=== PATIENT | female | born 1975 | race Caucasian/White ===

== ENCOUNTER → 2018-08-29 10:13 | Outpatient (CLI) | payer OTHER, MEDICAID, SELFPAY ==
[2018-08-29 12:09] LABS: Alanine Aminotransferase 93 IU/L (9-52); Albumin 4.4 g/dL (3.5-5.0); Albumin Globulin Ratio 1.3 (1.0-2.8); Alkaline Phosphatase 69 U/L (38-126); Aspartate Aminotransferase 66 IU/L (14-36); BUN Creatinine Ratio 15.7 (6-22); Bilirubin Total 0.9 mg/dL (0.2-1.3); Blood Urea Nitrogen 11 mg/dL (7-17); Calcium 8.9 mg/dL (8.4-10.2); Carbon Dioxide 27 mmol/L (22-32); Chloride 101 mmol/L (98-107); Cholesterol 198 mg/dL (140-199); Estimated Glomerular Filt Rate > 60.0 mL/min (>60); Globulin 3.4 g/dL (1.7-4.1); Glucose 98 mg/dL (70-100); HDL Cholesterol 44 mg/dL (40-60); HEMOLYSIS < 15 (0-50); LDL Cholesterol Calculated 119 mg/dL (<100); Potassium 3.9 mmol/L (3.4-5.1); Sodium 137 mmol/L (137-145); Total Protein 7.8 g/dL (6.3-8.2); Triglycerides 175 mg/dL (35-150)
[2018-08-29 12:17] LABS: Hemoglobin A1C% w Est Avg Glu 5.8 % (4.0-6.0)
[2018-08-29 13:04] LABS: Thyroid Stimulating Hormone 1.22 uIU/mL (0.47-4.68)
== END ==
PROVIDERS: Visit Provider Nurse Practitioner Family
DX: E11.9 Type 2 diabetes mellitus without complications (principal); I10 Essential (primary) hypertension; E66.01 Morbid (severe) obesity due to excess calories
CPT/HCPCS: 36415; 80053; 80061; 83036; 84443

== ENCOUNTER → 2019-03-01 10:06 | Outpatient (CLI) | payer OTHER, MEDICAID, SELFPAY ==
[2019-03-01 11:35] LABS: Alanine Aminotransferase 22 IU/L (9-52); Albumin 4.3 g/dL (3.5-5.0); Albumin Globulin Ratio 1.3 (1.0-2.8); Alkaline Phosphatase 54 U/L (38-126); Aspartate Aminotransferase 24 IU/L (14-36); BUN Creatinine Ratio 18.3 (6-22); Bilirubin Total 1.1 mg/dL (0.2-1.3); Blood Urea Nitrogen 11 mg/dL (7-17); Carbon Dioxide 28 mmol/L (22-32); Chloride 104 mmol/L (98-107); Estimated Glomerular Filt Rate > 60.0 mL/min (>60); Globulin 3.3 g/dL (1.7-4.1); Glucose 90 mg/dL (70-100); HEMOLYSIS < 15 (0-50); Sodium 142 mmol/L (137-145); Total Protein 7.6 g/dL (6.3-8.2)
[2019-03-01 11:37] LABS: HEMOLYSIS < 15 (0-50); Iron 98 ug/dL (37-170)
[2019-03-01 11:47] LABS: Percent Iron Saturation 31 % (15-50); Total Iron Binding Capacity 316 ug/dL (265-497); Transferrin 248 mg/dL (206-381)
[2019-03-01 11:57] LABS: Vitamin D 25 Hydroxy (D3) 53.6 ng/mL (30.0-100.0)
[2019-03-01 12:24] LABS: Vitamin B12 416 pg/mL (239-931)
[2019-03-01 14:31] LABS: Add Manual Diff / Slide Review NO; Basophils Absolute Auto 0 /uL (0-100); Basophils Percent Auto 0.8 % (0-2); Eosinophils Absolute Auto 0 /uL (0-450); Eosinophils Percent Auto 0.7 % (2-4); Hematocrit 41.8 % (36-46); Hemoglobin 13.7 g/dL (12.0-16.0); Lymphocytes Absolute Auto 2100 /uL (1100-4500); Mean Corpuscular HGB Conc 32.9 % (30-36); Mean Corpuscular Hemoglobin 28.1 PG (26-34); Mean Corpuscular Volume 85.6 fL (80-100); Monocytes Absolute Auto 300 /uL (0-900); Monocytes Percent Auto 5.1 % (3-14); Neutrophils Absolute Auto 3300 /uL (1500-7000); Neutrophils Percent Auto 57.4 % (50-75); Platelet Count 213 X10^3/uL (150-400); Red Blood Cell Count 4.89 X10^6/uL (4.0-5.2); Red Cell Distribution Width 13.6 % (11.6-14.8); White Blood Cell Count 5.8 X10^3/uL (4.5-11.0)
== END ==
PROVIDERS: Visit Provider Registered Nurse
DX: J30.9 Allergic rhinitis, unspecified (principal); R74.8 Abnormal levels of other serum enzymes; F32.1 Major depressive disorder, single episode, moderate; E61.1 Iron deficiency
CPT/HCPCS: 36415; 80053; 82306; 82607; 82728; 83540; 83550; 85025

== ENCOUNTER 2020-09-24 11:29 | Emergency (ER) | payer OTHER, SELFPAY ==
[2020-09-24] VITALS (11 sets, daily range): BP systolic 127–161; BP diastolic 62–86; PULSE 74–105; RESP 14–28; TEMP 36.5; O2SAT 95–100; BMI 34.7
[2020-09-24 12:06] LABS: Add Manual Diff / Slide Review NO; Basophils Absolute Auto 100 /uL (0-100); Basophils Percent Auto 1.1 % (0-2); Eosinophils Absolute Auto 100 /uL (0-450); Eosinophils Percent Auto 1.1 % (2-4); Hemoglobin 9.1 g/dL (12.0-16.0); Lymphocytes Absolute Auto 2200 /uL (1100-4500); Lymphocytes Percent Auto 27.4 % (25-40); Mean Corpuscular HGB Conc 30.4 % (30-36); Mean Corpuscular Volume 62.6 fL (80-100); Monocytes Absolute Auto 400 /uL (0-900); Monocytes Percent Auto 5.4 % (3-14); Neutrophils Absolute Auto 5200 /uL (1500-7000); Platelet Count 431 X10^3/uL (150-400); White Blood Cell Count 7.9 X10^3/uL (4.5-11.0)
[2020-09-24 12:08] LABS: BUN Creatinine Ratio 11.6 (6-22); Blood Urea Nitrogen 8 mg/dL (7-17); Calcium 9.2 mg/dL (8.4-10.2); Carbon Dioxide 24 mmol/L (22-32); Chloride 104 mmol/L (98-107); Estimated Glomerular Filt Rate > 60.0 mL/min (>60); Glucose 125 mg/dL (70-100); HEMOLYSIS < 15 (0-50); Potassium 3.9 mmol/L (3.4-5.1); Sodium 138 mmol/L (137-145)
[2020-09-24 12:23] LABS: Microcytosis 2+; Ovalocytes 1+
--- NOTE | 2020-09-24 13:39 | ED.SOB ---
HPI - SOB/Dyspnea General Chief Complaint: Shortness of Breath/Dyspnea Stated Complaint: deficiency anemia Time Seen by Provider: 09/24/20 13:52 Source: patient Mode of arrival: Ambulatory Limitations: no limitations History of Present Illness HPI Narrative: Patient is a 44-year-old female with history of anemia presenting with increasing shortness of breath over the past few months. She says over the last few days she has had increasing shortness of breath with exertion and she certainly has conversational dyspnea. She denies any orthopnea fever chills or productive cough. She has no chest pain. She does admit to some palpitations at times and feels like some panic. She denies any black stool or bright red blood per rectum. MD Complaint: shortness of breath Onset (ago): week(s) Severity: moderate Consistency/Duration: progressively worsening Relieving factors: rest Exacerbating factors: exertion, talking and allergies Related Data Previous Rx's Medication Instructions Recorded ferrous sulfate 325 mg PO DAILY #30 tab 09/24/20 Allergies Allergy/AdvReac Type Severity Reaction Status Date / Time Sulfa (Sulfonamide Allergy Unknown Verified 09/24/20 14:58 Antibiotics) Review of Systems Review of Systems ROS Unobtainable: All systems reviewed & are unremarkable except as noted in HPI and below Constitutional Constitutional: Denies chills, Denies fever(s), Denies lethargy and Denies weakness Eyes Eyes: Denies change in vision, Denies eye discharge, Denies irritation and Denies loss of vision ENT Ears, Nose, Mouth, and Throat: Denies change in voice, Denies neck pain and Denies sore throat Cardiovascular Cardiovascular: Denies chest pain, Denies lightheadedness, Reports dyspnea on exertion, Denies orthopnea and Denies paroxysmal nocturnal dyspnea Respiratory Respiratory: Reports dyspnea on exertion Gastrointestinal Gastrointestinal: Denies abdominal pain, Denies change in bowel habits, Denies diarrhea, Denies nausea and Denies vomiting Musculoskeletal Musculoskeletal: Denies back pain, Denies arthralgias and Denies neck pain Integumentary/Breasts Skin/Breast: Denies pruritus, Denies erythema, Denies rash and Denies wounds Neurologic Neurologic: Denies loss of vision and Denies weakness Patient History Medical History Anemia Social History (Reviewed 03/31/21 @ 14:04 by LEXII Walsh Smoking Status: Never smoker Smoking Status: Never smoker alcohol intake frequency: 0-2 drinks per day Substance Use Type: does not use Exam Initial Vital Signs Initial Vital Signs: Vital Signs Temperature 97.7 F 09/24/20 11:30 Pulse Rate 105 H 09/24/20 11:30 Respiratory Rate 19 09/24/20 11:30 Blood Pressure 161/86 H 09/24/20 11:30 Pulse Oximetry 99 09/24/20 11:30 GENERAL: Well-appearing, well-nourished and in no acute distress. HEENT: Head atraumatic,EOMI, pupils reactive, face symmetric, moist mucous membranes CARDIOVASCULAR: Regular rate and rhythm without murmurs, rubs or gallops. RESPIRATORY: Breath sounds equal bilaterally, no wheezes rales or rhonchi. ABDOMEN: Soft, nontender. Normoactive bowel sounds all 4 quadrants. No guarding or rebound. EXTREMITIES: Normal range of motion, no clubbing or edema. Neurovascularly intact NEUROLOGICAL: Alert and oriented x4.Normal gait and speech. Cranial nerves II through XII grossly intact. SKIN: Warm, dry, no laceration, no petechiae, no rashes or lesions. Scores PERC Score Age greater than or equal to 50 years: No Heart rate greater than or equal to 100 bpm: No Room Air O2 Sat less than 95%: No Unilateral leg swelling: No Recent trauma or surgery: No Hemoptysis: No Prior PE or DVT: No Hormone Use: No Total PERC Score: 0 Course Orders Ordered: ED Orders 09/24/20 11:34 EKG-12 Lead Routine 09/24/20 11:45 CHEM7 [Basic Metabolic Panel] Stat Complete Blood Count AUTO DIFF Stat D Dimer Stat NT-proBNP (BNP-Adult 18+) Stat Troponin & CK Cardiac Panel Stat 09/24/20 14:01 XR chest 1V Stat Discontinued Medications Albuterol (Albuterol Hfa Mdi 60 Puff/8 Gm Inhaler) 2 puff INH NOW ONE Stop: 09/24/20 14:58 Last Admin: 09/24/20 15:38 Dose: 2 puff Documented by: VANNESSA Vital Signs Vital signs: Vital Signs - 8 hr 09/24/20 13:21 09/24/20 13:22 09/24/20 13:30 Pulse Rate 84 80 74 Respiratory Rate 19 23 Blood Pressure 133/78 139/82 Pulse Oximetry 99 100 100 09/24/20 14:00 09/24/20 14:30 09/24/20 14:31 Pulse Rate 84 80 82 Respiratory Rate 20 22 28 H Blood Pressure 148/86 H 128/62 Pulse Oximetry 95 99 100 09/24/20 15:00 09/24/20 15:01 09/24/20 15:30 Pulse Rate 87 91 H 89 Respiratory Rate 24 28 H 14 Blood Pressure 127/68 131/73 Pulse Oximetry 100 100 100 09/24/20 15:43 Pulse Rate 96 H Respiratory Rate 16 Blood Pressure Pulse Oximetry 96 MDM - SOB/Dyspnea Lab Data Attestation: I reviewed the patient's lab results. Result diagrams: 09/24/20 11:45 09/24/20 11:45 Labs: Lab Results 09/24/20 09/24/20 09/24/20 Range/Units 11:45 11:45 11:45 WBC 7.9 (4.5-11.0) X10^3/uL RBC 4.80 (4.0-5.2) X10^6/uL Hgb 9.1 L (12.0-16.0) g/dL Hct 30.0 L (36-46) % MCV 62.6 L (80-100) fL MCH 19.0 L (26-34) PG MCHC 30.4 (30-36) % RDW 19.0 H (11.6-14.8) % Plt Count 431 H (150-400) X10^3/uL Neut % (Auto) 65.0 (50-75) % Lymph % (Auto) 27.4 (25-40) % Harris % (Auto) 5.4 (3-14) % Eos % (Auto) 1.1 L (2-4) % Baso % (Auto) 1.1 (0-2) % Neut # (Auto) 5200 (7893-0101) /uL Lymph # (Auto) 2200 (2952-1856) /uL Harris # (Auto) 400 (0-900) /uL Eos # (Auto) 100 (0-450) /uL Baso # (Auto) 100 (0-100) /uL RBC Morphology Not Reportable Microcytosis 2+ H Ovalocytes 1+ H D-Dimer 247 H (<230) ng/mL Sodium 138 (137-145) mmol/L Potassium 3.9 (3.4-5.1) mmol/L Chloride 104 (98-107) mmol/L Carbon Dioxide 24 (22-32) mmol/L BUN 8 (7-17) mg/dL Creatinine 0.69 (0.52-1.04) mg/dL Estimated GFR > 60.0 (>60) mL/min BUN/Creatinine Ratio 11.6 (6-22) Glucose 125 H (70-100) mg/dL Calcium 9.2 (8.4-10.2) mg/dL Total Creatine Kinase (30-135) U/L CK-MB (CK-2) (<2.37) ng/mL CK-MB (CK-2) Rel Index (1.5-5.0) % Troponin I (0.01-0.034) ng/mL NT-Pro-B Natriuret Pep (<125) pg/mL 09/24/20 Range/Units 11:45 WBC (4.5-11.0) X10^3/uL RBC (4.0-5.2) X10^6/uL Hgb (12.0-16.0) g/dL Hct (36-46) % MCV (80-100) fL MCH (26-34) PG MCHC (30-36) % RDW (11.6-14.8) % Plt Count (150-400) X10^3/uL Neut % (Auto) (50-75) % Lymph % (Auto) (25-40) % Harris % (Auto) (3-14) % Eos % (Auto) (2-4) % Baso % (Auto) (0-2) % Neut # (Auto) (1867-1751) /uL Lymph # (Auto) (8507-1913) /uL Harris # (Auto) (0-900) /uL Eos # (Auto) (0-450) /uL Baso # (Auto) (0-100) /uL RBC Morphology Microcytosis Ovalocytes D-Dimer (<230) ng/mL Sodium (137-145) mmol/L Potassium (3.4-5.1) mmol/L Chloride (98-107) mmol/L Carbon Dioxide (22-32) mmol/L BUN (7-17) mg/dL Creatinine (0.52-1.04) mg/dL Estimated GFR (>60) mL/min BUN/Creatinine Ratio (6-22) Glucose (70-100) mg/dL Calcium (8.4-10.2) mg/dL Total Creatine Kinase 106 (30-135) U/L CK-MB (CK-2) < 0.22 (<2.37) ng/mL CK-MB (CK-2) Rel Index 0.2 L (1.5-5.0) % Troponin I < 0.012 (0.01-0.034) ng/mL NT-Pro-B Natriuret Pep 62 (<125) pg/mL Urine Dip Bedside Urine Glucose Negative Bedside Urine Bilirubin - Negative Bedside Urine Ketone - Negative Urine Specific [place] 1.015 Bedside Urine Occult Blood - Negative Bedside Urine pH 7 Bedside Urine Protein - Negative Bedside Urine Urobilinogen - Negative Bedside Urine Nitrite - Negative Bedside Urine Leukocytes ++ 125 Esterase Imaging Data Chest x-ray: Radiologist's Impression: PROCEDURE: XR CHEST 1V INDICATIONS: short of breath TECHNIQUE: One view of the chest was acquired. COMPARISON: None. FINDINGS: Surgical changes and devices: None. Lungs and pleura: Lungs are clear. No pleural effusions or pneumothorax. Mediastinum: Mediastinal contours appear normal. Heart size is normal. Bones and chest wall: No suspicious bony lesions. Overlying soft tissues appear unremarkable. IMPRESSION: No acute process. Dictated by: Nathalie Perez M.D. on 09/24/2020 at 14:20 ECG Data Attestation: I personally reviewed and interpreted this ECG as follows: Prior ECG tracings: not available for review Interpretation: Normal sinus rhythm rate 94 p.r. interval 146 QRS [address] changes MDM Narrative Medical decision making narrative: Is patient blood work is overall reassuring x-ray does not show any pneumonia she has no leukocytosis. She certainly is anemic with microcytic anemia with MCV 62, her hemoglobin 9.1 and hematocrit of 30. At this time does not warrant blood transfusion. D-dimer in just over limit at this time I do not think PE. Discharge Plan Departure Patient Disposition: Home Clinical Impression: Anemia Qualifiers: Anemia type: iron deficiency Allergies Qualifiers: Encounter type: initial encounter Qualified Code(s): T78.40XA - Allergy, unspecified, initial encounter Instructions: Anemia Activity Restrictions/Additional Instructions: *You have been diagnosed with shortness of breath likely due to anemia possible allergies as well. *What to do: At this time he certainly do not need a blood transfusion but I do recommend he start taking iron medication. You may find that albuterol helps when her allergies are acting up as well. *Continue to take medications as directed Albuterol 1-2 puffs every 4 hours if needed for shortness of Ferrous sulfate 324mg once daily -this will cause her stool to be black and he may get constipated *Follow up with your primary care provider in 2-3 days [and follow up with ortho, urology etc] *Return to ER if you should have [such as] [or] any new, worsening or concerning symptoms Prescriptions: New ferrous sulfate 325 mg (65 mg iron) tablet,delayed release (DR/EC) 325 mg PO DAILY Qty: 30 RF: 0 Referrals: Miscellaneous,Doctor, [Primary Care Provider] -
--- NOTE | 2020-09-24 14:01 | DI.RAD.S_ITS ---
PROCEDURE: XR CHEST 1V INDICATIONS: short of breath TECHNIQUE: One view of the chest was acquired. COMPARISON: None. FINDINGS: Surgical changes and devices: None. Lungs and pleura: Lungs are clear. No pleural effusions or pneumothorax. Mediastinum: Mediastinal contours appear normal. Heart size is normal. Bones and chest wall: No suspicious bony lesions. Overlying soft tissues appear unremarkable. IMPRESSION: No acute process. Dictated by: Nathalie Perez M.D. on 09/24/2020 at 14:20 Approved by: Nathalie Perez M.D. on 09/24/2020 at 14:20
[2020-09-24 14:34] LABS: Creatine Kinase 106 U/L (30-135)
[2020-09-24 14:37] LABS: D Dimer 247 ng/mL (<230)
[2020-09-24 14:47] LABS: NT-proBNP (BNP-Adult 18+) 62 pg/mL (<125); Troponin I < 0.012 ng/mL (0.01-0.034)
[2020-09-24 14:58] LABS: CKMB % Relative Index 0.2 % (1.5-5.0); Creatine Kinase MB < 0.22 ng/mL (<2.37)
[2020-09-24] MEDS: ALBUTEROL HFA MDI 60 PUFF/8 GM INHALER INH (15:38)
== END 2020-09-24 15:59 | disposition home or self-care (01) ==
PROVIDERS: Emergency Provider Emergency Medicine
DX: D50.9 Iron deficiency anemia, unspecified (principal); T78.40XA Allergy, unspecified, initial encounter
CPT/HCPCS: 36415; 71045; 80048; 81003; 82550; 82553; 83880; 84484; 85025; 85379; 93005; 94640; 99284; A9270

== ENCOUNTER → 2020-10-01 11:31 | Outpatient (CLI) | payer OTHER, SELFPAY ==
[2020-10-01 12:05] LABS: Add Manual Diff / Slide Review NO; Basophils Absolute Auto 100 /uL (0-100); Basophils Percent Auto 1.1 % (0-2); Eosinophils Absolute Auto 100 /uL (0-450); Eosinophils Percent Auto 0.8 % (2-4); Hematocrit 29.1 % (36-46); Lymphocytes Absolute Auto 2200 /uL (1100-4500); Mean Corpuscular HGB Conc 30.9 % (30-36); Mean Corpuscular Hemoglobin 19.5 PG (26-34); Mean Corpuscular Volume 63.3 fL (80-100); Monocytes Absolute Auto 300 /uL (0-900); Monocytes Percent Auto 4.4 % (3-14); Neutrophils Absolute Auto 4800 /uL (1500-7000); Neutrophils Percent Auto 64.7 % (50-75); Platelet Count 356 X10^3/uL (150-400); Red Cell Distribution Width 20.1 % (11.6-14.8); White Blood Cell Count 7.4 X10^3/uL (4.5-11.0)
[2020-10-01 12:21] LABS: Alanine Aminotransferase 17 IU/L (<35); Albumin 4.1 g/dL (3.5-5.0); Albumin Globulin Ratio 1.3 (1.0-2.8); Alkaline Phosphatase 82 U/L (38-126); Aspartate Aminotransferase 27 IU/L (14-36); BUN Creatinine Ratio 15.2 (6-22); Bilirubin Total 0.4 mg/dL (0.2-1.3); Blood Urea Nitrogen 10 mg/dL (7-17); Calcium 8.8 mg/dL (8.4-10.2); Carbon Dioxide 29 mmol/L (22-32); Chloride 104 mmol/L (98-107); Cholesterol 211 mg/dL (140-199); Estimated Glomerular Filt Rate > 60.0 mL/min (>60); Globulin 3.1 g/dL (1.7-4.1); Glucose 95 mg/dL (70-100); HDL Cholesterol 60 mg/dL (40-60); HEMOLYSIS < 15 (0-50); LDL Cholesterol Calculated 123 mg/dL (<100); Potassium 3.9 mmol/L (3.4-5.1); Sodium 139 mmol/L (137-145); Total Protein 7.2 g/dL (6.3-8.2); Triglycerides 142 mg/dL (35-150)
[2020-10-01 13:39] LABS: Polychromasia 1+
[2020-10-01 13:40] LABS: Anisocytosis 2+; Microcytosis 2+; Ovalocytes 1+
[2020-10-01 15:59] LABS: HEMOLYSIS < 15 (0-50); Iron 16 ug/dL (37-170)
[2020-10-01 16:10] LABS: Percent Iron Saturation 4 % (15-50); Total Iron Binding Capacity 444 ug/dL (265-497); Transferrin 351 mg/dL (206-381)
== END ==
PROVIDERS: PCP Registered Nurse; Referring Provider Registered Nurse; Visit Provider Registered Nurse
DX: F41.9 Anxiety disorder, unspecified (principal); F32.1 Major depressive disorder, single episode, moderate; Z13.1 Encounter for screening for diabetes mellitus; E78.5 Hyperlipidemia, unspecified; R74.8 Abnormal levels of other serum enzymes
CPT/HCPCS: 36415; 80053; 80061; 83540; 83550; 85025

== ENCOUNTER → 2020-10-08 16:27 | Outpatient (CLI) | payer OTHER, SELFPAY ==
--- NOTE | 2020-10-08 | DI.MG.S_ITS ---
BILATERAL DIGITAL SCREENING MAMMOGRAM 3D/2D WITH CAD: 10/08/2020 CLINICAL: Routine screening. Baseline exam. No prior exams were available for comparison. There are scattered fibroglandular elements in both breasts. Current study was also evaluated with a Computer Aided Detection (CAD) system. No significant masses, calcifications, or other findings are seen in either breast. IMPRESSION: NEGATIVE There is no mammographic evidence of malignancy. A 1 year screening mammogram is recommended. This exam was interpreted at Station ID: [id number]. NOTE: For mammograms, a report in lay terms will be sent to the patient. Approximately 15% of breast malignancies will not be visualized mammographically. In the management of a palpable breast mass, a negative mammogram must not discourage biopsy of a clinically suspicious lesion. Electronically Signed By: Kaity [email or web address]:10/08/2020 17:54:47 letter sent: Normal Exam ACR BI-RADS Category 1: Negative [id number]
== END ==
PROVIDERS: PCP Registered Nurse; Referring Provider Registered Nurse; Visit Provider Registered Nurse
DX: Z12.31 Encounter for screening mammogram for malignant neoplasm of breast (principal)
CPT/HCPCS: 77063; 77067

== ENCOUNTER → 2020-10-23 14:14 | Outpatient (CLI) | payer OTHER, SELFPAY ==
[2020-10-23 16:49] LABS: Add Manual Diff / Slide Review NO; Basophils Absolute Auto 100 /uL (0-100); Basophils Percent Auto 0.9 % (0-2); Eosinophils Absolute Auto 100 /uL (0-450); Eosinophils Percent Auto 0.9 % (2-4); Hematocrit 31.4 % (36-46); Hemoglobin 9.5 g/dL (12.0-16.0); Lymphocytes Absolute Auto 2100 /uL (1100-4500); Lymphocytes Percent Auto 28.6 % (25-40); Mean Corpuscular HGB Conc 30.2 % (30-36); Mean Corpuscular Hemoglobin 20.4 PG (26-34); Mean Corpuscular Volume 67.6 fL (80-100); Monocytes Absolute Auto 400 /uL (0-900); Monocytes Percent Auto 5.5 % (3-14); Neutrophils Absolute Auto 4700 /uL (1500-7000); Neutrophils Percent Auto 64.1 % (50-75); Platelet Count 364 X10^3/uL (150-400); Red Blood Cell Count 4.64 X10^6/uL (4.0-5.2); Red Cell Distribution Width 24.8 % (11.6-14.8); White Blood Cell Count 7.3 X10^3/uL (4.5-11.0)
[2020-10-23 17:22] LABS: Ferritin 8 ng/mL (6-137)
[2020-10-23 17:42] LABS: Iron 22 ug/dL (37-170)
[2020-10-23 17:53] LABS: Percent Iron Saturation 5 % (15-50); Total Iron Binding Capacity 410 ug/dL (265-497)
[2020-10-23 18:04] LABS: Anisocytosis 2+
[2020-10-23 18:05] LABS: Hypochromasia 2+; Microcytosis 2+; Platelet Estimate Adequate on smear
== END ==
PROVIDERS: PCP Registered Nurse; Referring Provider Registered Nurse; Visit Provider Registered Nurse
DX: D50.9 Iron deficiency anemia, unspecified (principal)
CPT/HCPCS: 36415; 82728; 83540; 83550; 85025

== ENCOUNTER → 2020-11-26 13:34 | Outpatient (CLI) | payer OTHER, SELFPAY ==
[2020-11-26 15:21] LABS: Hematocrit 36.1 % (36-46); Hemoglobin 11.4 g/dL (12.0-16.0); Mean Corpuscular HGB Conc 31.5 % (30-36); Mean Corpuscular Hemoglobin 23.4 PG (26-34); Mean Corpuscular Volume 74.2 fL (80-100); Platelet Count 310 X10^3/uL (150-400); Red Blood Cell Count 4.86 X10^6/uL (4.0-5.2); Red Cell Distribution Width 25.9 % (11.6-14.8)
[2020-11-26 15:52] LABS: Iron 47 ug/dL (37-170)
[2020-11-26 16:04] LABS: Percent Iron Saturation 14 % (15-50); Total Iron Binding Capacity 345 ug/dL (265-497)
[2020-11-26 16:14] LABS: Ferritin 10 ng/mL (6-137)
== END ==
PROVIDERS: PCP Registered Nurse; Referring Provider Registered Nurse; Visit Provider Registered Nurse
DX: D50.9 Iron deficiency anemia, unspecified (principal); N92.0 Excessive and frequent menstruation with regular cycle
CPT/HCPCS: 36415; 82728; 83540; 83550; 85027

== ENCOUNTER → 2021-01-12 08:00 | Outpatient (CLI) | payer OTHER, SELFPAY ==
[2021-01-12 11:29] LABS: COVID19 -Nasal RAPID Negative (Negative)
== END ==
PROVIDERS: PCP Registered Nurse; Visit Provider Obstetrics & Gynecology
DX: Z01.812 Encounter for preprocedural laboratory examination (principal); Z20.822 Contact with and (suspected) exposure to COVID-19
CPT/HCPCS: 87635

== ENCOUNTER 2021-01-13 06:29 | Day surgery (SDC) | payer OTHER, SELFPAY ==
[2021-01-07 10:28] VITALS: BMI 39.4
[2021-01-13] VITALS (17 sets, daily range): BP systolic 100–167; BP diastolic 55–100; PULSE 67–108; RESP 10–21; TEMP 36.1–37.1; O2SAT 89–99; BMI 39.4
--- NOTE | 2021-01-13 | PATH_ITS ---
[facility] Accession Number: [id number] . 01 Material submitted: . uterus - UTERUS AND BILATERAL FALLOPIAN TUBES . 01 Clinical history: . [facility] W/B SALPINGECTOMY *OPB . 02 Diagnosis: Uterus and Bilateral Fallopian Tubes, Laparoscopic Supracervical Hysterectomy With Bilateral Salpingectomy (Weight 51 grams): Weakly proliferative / basalis endometrium; negative for glandular hyperplasia, cytologic atypia, or malignancy. Myometrium with no significant histomorphologic abnormality. Serosa with no significant histomorphologic abnormality. Cross-sections of fallopian tubes x2 with benign paratubal cysts (1-9 mm); negative for atypia or malignancy. [facility] 01/16/2021 1254 Local . 02 Electronically signed: . Veronica Parson MD, Pathologist NPI- [id number] . 01 Gross description: . The specimen is received in formalin labeled uterus and bilateral fallopian tubes and consists of a fragmented uterus with attached bilateral fallopian tubes weighing 51 grams and measuring 6.2 x 6.0 x 5.0 cm in aggregate. The serosa is ruiz-pink and smooth. The cervix is not identified. Opening reveals a ruiz-pink hemorrhagic endometrium measuring 0.1 cm in thickness. The myometrium is ruiz-pink and trabeculated, measuring 1.5 cm in thickness. The fallopian tubes measure 6.0 cm in length x 1.0 cm in diameter. The serosa is ruiz-pink and smooth with multiple paratubal cysts ranging from 0.1 to 0.9 cm. Sectioning reveals a ruiz mucosa and a stellate lumen measuring 0.3 cm in diameter. Roll Filler sections are submitted. . A1 - Area of presumed lower uterine segment. A2-A3 - Endomyometrium. A4-A5 - Fallopian tubes, to include bisected fimbria and central cross-sections. A6-A7 - Other fallopian tube, to include bisected fimbria and central cross-sections. ([id number]) /[facility] 01/14/2021 1620 Local . 02 Pathologist provided ICD-10: N92.0, Z86.2 . 02 CPT . 526632 Performed at: 01 [facility] [address] [address], [place], [place] [id number] MD Froilan Gross MD Phone: [phone] Performed at: 02 [facility] [address] [place], [place] [id number] MD Jessica Romero MD Phone: [phone]
[2021-01-13] MEDS: ACETAMINOPHEN 325 MG TABLET 975 MG PO (07:36)
[2021-01-13] MEDS: LACTATED RINGERS 1,000 ML 42 ML IV ×2 (07:36→10:19)
--- NOTE | 2021-01-13 08:01 | PM.PREOP ---
Pre-operative Note COVID-19 COVID-19 status: Negative Result date/Date tested (Pos, Neg/Pending): 01/12/21 Interval Note History & Physical reviewed/Exam performed by Physician: Yes Changes to H&P: No H&P completed within 30 days and has changed as indicated here:: 01/12/21
[2021-01-13] MEDS: CEFAZOLIN 1 GM VIAL 2 GM IV (08:34)
--- NOTE | 2021-01-13 09:23 | SUR.OPER ---
Lithotomy on padded OR bed. [place] Pad Positioner under torso. Head on pillow, arms padded and tucked at sides. Legs secured in padded yellow fins stirrups.
[2021-01-13] MEDS: BUPIVACAINE 0.5% (PF) VIAL 30 ML INJ (09:32)
[2021-01-13] MEDS: ROPIVACAINE 0.2% PF 2 MG/ML 10ML AMP 20 ML INJ (09:33)
--- NOTE | 2021-01-13 10:29 | PM.GYNOP.1 ---
Operative Date/Time/Diagnoses Date of procedure: 01/13/21 Time of procedure: 10:29 Pre-op diagnosis: Menorrhagia Post-op diagnosis: same Procedure & Clinicians Procedure: Procedures Operation Date: 01/13/21 07:45 Actual Procedure Side Surgeon p Laparoscopic Supracervical Hysterectomy w/ bilateral salpingectomy Josephine Barry MD Indications: Menorrhagia Surgeon: Josephine [facility] Attendant: Harvinder Reza Anesthesia Type: General and Local Operative Notes Findings: 8 week size anteverted uterus Normal ovaries and tubes Normal liver and gallbladder Normal appendix Closure Type: primary Specimen(s): left tube, right tube and uterus Applied: catheter (Removed at the end of the case) Estimated blood loss (mL): 50 Blood products transfused: none Procedure in detail: The patient was taken to the operating room where she was placed in the dorsal supine position. After adequate general endotracheal anesthesia was achieved, she was placed in the dorsal lithotomy position, and prepped and draped in the usual sterile fashion. A timeout was performed. A bivalve speculum was placed into the vagina and the anterior lip of the cervix grasped with a single-tooth tenaculum. The cervical os was sequentially dilated until the ZUMI uterine manipulator could pass easily into the endometrial cavity. The single-tooth tenaculum was removed from the anterior lip of the cervix, and the bivalve speculum was removed from the vagina. Attention was then turned to the abdomen where 6 mL of half percent Marcaine with epinephrine were injected in the umbilical fold. A 5 mm incision was made. The Verhees needle was placed into the peritoneal cavity, and its placement confirmed by aspiration and drop test. The Verhees needle was removed. A 5 mm trocar was placed without difficulty. 2 other incisions were made lateral to the umbilicus after 5 mL of half percent Marcaine with epinephrine were injected. These were 5 mm incisions. Two 5 mm trochars were placed under direct visualization. The right tube was grasped with an atraumatic grasper. Using the plasma kinetic with settings of 40 W the mesosalpinx was cauterized and cut all the way down to the cornua of the uterus. The cornua of the uterus was then grasped with an atraumatic grasper. The utero-ovarian ligaments were cauterized and cut. The round ligament and broad ligament was cauterized and cut with plasma kinetic. Hemostasis was achieved. The bladder flap was created using the plasma kinetic with cautery and cut custodial across. The uterine arteries on the right side were extensively cauterized with plasma kinetic. All of this was repeated on the left side. The remainder of the bladder flap was created using the plasma kinetic, and the bladder taken down off the lower uterine segment and cervix. Using the [place], the cervix was amputated from the uterus 2 cm above the uterosacral ligaments, after the ZUMI uterine manipulator was removed from the uterus., and a sponge stick was placed into the vagina. There was a small amount of bleeding noted from the left edge of the cervix, and this was cauterized for hemostasis. The endocervical canal was extensively cauterized. 6 mL of half percent Marcaine with epinephrine were injected above the pubic symphysis. A 12 mm incision was made. A 12 mm trocar was placed under direct visualization. An Endobag was placed through the suprapubic trocar and the uterus and tubes were placed into the Endobag. The trocar was removed and the edges of the endobag were brought up through the skin. The Prosper was placed into the endobag. The uterus was hand morcellated in approximately 8 pieces. The Endobag was removed from the peritoneal cavity with the Prosper. The pelvis was copiously irrigated with warm normal saline. No bleeding was noted. 20 cc of 0.2% ropivacaine were placed over the pedicles. The instruments were removed from the abdomen. The CO2 was allowed to escape. The suprapubic incision was closed on the fascia with 0 Vicryl. Two simple interrupted sutures were placed in the subcutaneous layer for reapproximation. All of the incisions were closed with 4-0 Biosyn in a subcuticular fashion. Steri-Strips and Allevyn dressings were placed. The moistened sponge stick was removed from the vagina. Sponge, lap, and instrument counts were correct x-2. The patient tolerated the procedure well, was taken to PACU in stable condition. Complications: none Post-operative Condition: stable Disposition: PACU Plan for aftercare: To acute care after recovery
[2021-01-13] MEDS: fentaNYL 100 MCG/2 ML INJ IV ×4 (11:02→12:07)
[2021-01-13] MEDS: LORazepam 2 MG/ML INJ 0.25 MG IV (11:07)
[2021-01-13] MEDS: OXYCODONE IR 5 MG TABLET PO ×3 (11:58→19:42)
--- NOTE | 2021-01-13 13:16 | PC.ADMIT ---
[email or web address] Admission Note: The patient,Alycia Young,45 y/o, was given written information regarding hospital policies, unit procedures and contact persons. Patient's smoking status: Never smoker. Vital Signs - 8 hr 01/13/21 07:28 01/13/21 10:50 01/13/21 10:55 Temperature 97 F L 98.1 F Pulse Rate 86 67 89 Respiratory Rate 16 10 L 16 Blood Pressure 135/87 147/88 H 148/83 H Pulse Oximetry 97 89 L 97 01/13/21 11:00 01/13/21 11:02 01/13/21 11:15 Temperature 98.1 F Pulse Rate 89 87 Respiratory Rate 10 L 14 Blood Pressure 143/88 H 126/100 H Pulse Oximetry 97 97 01/13/21 11:45 01/13/21 12:00 01/13/21 12:15 Temperature 98.7 F Pulse Rate 101 H 108 H 87 Respiratory Rate 15 20 12 Blood Pressure 147/85 H 154/87 H 119/82 Pulse Oximetry 97 99 97 01/13/21 12:45 Temperature 98.2 F Pulse Rate 79 Respiratory Rate 16 Blood Pressure 124/85 Pulse Oximetry 98 Patient arrived in room 204 at 1250 via bed accompanied by FASHION EDITOR. Post op vitals started. SCDs connected. All incision dressings are C/D/I. Patient currently on 1L NC of oxygen. Patient oriented to room and floor. Bed in lowest position, call light within reach. Mother into room at 1305. Patient given pillow and ice pack to help with post-op pain. Patient and mother deny any further needs or questions.
[2021-01-13] MEDS: KETOROLAC 30 MG/ML VIAL IV ×2 (13:40→18:46)
[2021-01-13] MEDS: LACTATED RINGERS 1,000 ML 100 ML IV ×2 (13:41→23:57)
[2021-01-13] MEDS: DOCUSATE 250 MG CAPSULE PO (20:37)
[2021-01-13] MEDS: ACETAMINOPHEN 325 MG TABLET 650 MG PO (22:38)
[2021-01-13] MEDS: BENZOCAINE/MENTHOL 1 LOZ PKT 1 EACH PO (22:39)
[2021-01-14 00:30] VITALS: BP 119/58; PULSE 62; RESP 16; TEMP 37.2; O2SAT 96
[2021-01-14] MEDS: KETOROLAC 30 MG/ML VIAL IV ×2 (01:27→06:49)
[2021-01-14 04:47] VITALS: BP 147/58; PULSE 98; RESP 18; TEMP 36.8; O2SAT 97
[2021-01-14] MEDS: BENZOCAINE/MENTHOL 1 LOZ PKT 1 EACH PO (06:49)
[2021-01-14 07:01] LABS: Add Manual Diff / Slide Review NO; Basophils Absolute Auto 0 /uL (0-100); Basophils Percent Auto 0.2 % (0-2); Eosinophils Absolute Auto 0 /uL (0-450); Eosinophils Percent Auto 0.3 % (2-4); Hematocrit 30.6 % (36-46); Hemoglobin 9.8 g/dL (12.0-16.0); Lymphocytes Absolute Auto 2500 /uL (1100-4500); Lymphocytes Percent Auto 25.1 % (25-40); Mean Corpuscular HGB Conc 32.1 % (30-36); Mean Corpuscular Volume 77.7 fL (80-100); Monocytes Absolute Auto 600 /uL (0-900); Monocytes Percent Auto 6.4 % (3-14); Neutrophils Absolute Auto 6900 /uL (1500-7000); Platelet Count 229 X10^3/uL (150-400); Red Blood Cell Count 3.94 X10^6/uL (4.0-5.2); Red Cell Distribution Width 16.8 % (11.6-14.8); White Blood Cell Count 10.1 X10^3/uL (4.5-11.0)
--- NOTE | 2021-01-14 07:27 | PM.DS.1 ---
History of Present Illness History of Present Illness Date Patient Seen: 01/14/21 Time Patient Seen: 07:27 Chief complaint: [facility] W/B SALPINGECTOMY *OPB* Narrative: Patient underwent a laparoscopic supracervical hysterectomy with bilateral salpingo oophorectomy for menorrhagia Discharge Providers Provider Discharge Date: 01/14/21 Primary care physician: Mynor Montanez ND Discharge provider: Zainab Adams MD Summary Hospital Course Discharge Diagnosis: Sent underwent a laparoscopic supracervical hysterectomy with bilateral salpingectomy on 01/13/2021 Hospital Course: Patient underwent a laparoscopic supracervical hysterectomy on 01/13/2021. She has some pain in her lower incision. She is urinating and ambulating well. She has no nausea. She is passing gas. She does complain of a sore throat. She wondered if she still needed to take her iron and informed her she did because her hematocrit is 30. Status at Discharge Cognitive/behavioral status at discharge: oriented Functional status at discharge: independent ambulation Overall status at discharge: patient is progressing back to baseline Time Spent with Patient Time spent: Less than 30 minutes Exam Vital Signs (past 8 hours): - 01/14/21 00:30 01/14/21 04:47 Temperature 99.0 F 98.2 F Pulse Rate 62 98 H Respiratory Rate 16 18 Blood Pressure 119/58 L 147/58 H Pulse Oximetry 96 97 Oxygen Delivery Method Room Air Oxygen Flow Rate 0 Narrative Exam Narrative: Patient's abdomen is soft and nontender. Dressings are clean, dry, intact. Extremities without edema and nontender. Objective Labs Result Diagrams: 01/14/21 06:33 Labs: Laboratory Results - last 24 hr 01/14/21 06:33 WBC 10.1 RBC 3.94 L Hgb 9.8 L Hct 30.6 L MCV 77.7 L MCH 25.0 L MCHC 32.1 RDW 16.8 H Plt Count 229 Neut % (Auto) 68.0 Lymph % (Auto) 25.1 [place] % (Auto) 6.4 Eos % (Auto) 0.3 L Baso % (Auto) 0.2 Neut # (Auto) 6900 Lymph # (Auto) 2500 [place] # (Auto) 600 Eos # (Auto) 0 Baso # (Auto) 0 PFSH Medical History (Updated 01/12/21 @ 21:49 by Amara Seymour) Allergies (~1994) Anemia (~2020) Anxiety (~1979) Back pain (~1993) Chicken pox (~1979) Depression (~1998) GERD (gastroesophageal reflux disease) (~1998) Hemorrhoid (~2004) Irregular menstrual cycle Irritable bowel syndrome (~2000) Kidney stones (~2015) Menorrhagia (~1995) PTSD (post-traumatic stress disorder) (~1979) Recurrent sinusitis (~1998) Surgical History (Updated 01/12/21 @ 21:49 by Amara Seymour) Anesthesia History of surgery (~2016) Center teeth removed (~1991) Family History (Updated 01/12/21 @ 21:52 by Amara Seymour) Brother Mental health problem Grandmother Breast cancer Grandfather Diabetes mellitus Grandmother Cancer Daughter ADHD Mental health problem Social History household members: children Smoking Status: Never smoker alcohol intake: never Discharge Assessment & Plan Assessment and Plan Assessment: Patient is postoperative day 1 laparoscopic supracervical hysterectomy with bilateral salpingectomies for menorrhagia doing well Plan of Treatment: Discharge home Discharge Plan Discharge Plan Patient Disposition: Home Provider Discharge Comment: Call with fever, chills, redness or drainage around the incisions, or bleeding vaginally more than spotting to light Discharge orders & Medications Discharge Orders: Discharge (Order); Ordered 01/14/21 Ordered By: Zainab Adams Prescriptions: New oxycodone 5 mg tablet 5 mg PO Q4H PRN (Reason: pain) Qty: 20 RF: 0 oxycodone 5 mg Tablet 5 mg PO Q4HR PRN (Reason: Pain, Moderate (4-6)) Qty: 20 RF: 0 Continued escitalopram oxalate 10 mg tablet 10 mg PO DAILY RF: 0 loratadine 10 mg capsule 10 mg PO DAILY RF: 0 montelukast 10 mg tablet 10 mg PO DAILY RF: 0 fluticasone propionate 50 mcg/actuation spray,suspension 1 spray intranasal BID RF: 0 azelastine 137 mcg (0.1 %) aerosol,spray 2 spray intranasal BID RF: 0 ferrous sulfate 325 mg (65 mg iron) tablet,delayed release (DR/EC) 325 mg PO DAILY Qty: 30 RF: 0 Follow up/Referrals: Josephine Barry MD [Physician] - 2 Weeks (Please make 2 wk post op check prior to discharge) Diet/Activity/Treatments Diet: Regular Activity: No heavy lifting Skin/Wound/Dressing Care Report to your healthcare provider any signs of infection, such as:: chills, fever, increased pain, unusual drainage and unusual redness Dressing: Remove outer pink dressings with attached gauze in 3 days after shower Visit Report/Discharge Packet Instructions: DI for Hysterectomy, DI for Laparoscopy, DI for Prescription Opioid Use Stand Alone Forms: Surgery Discharge Discharge Data Primary Care Provider: Mynor Montanez Attending Provider: Josephine Barry Quality VTE Deep Vein Thrombosis/Pulmonary Embolism Present on Admission: No
[2021-01-14 07:55] VITALS: BP 155/88; PULSE 92; RESP 17; TEMP 36.6; O2SAT 97
[2021-01-14] MEDS: OXYCODONE IR 5 MG TABLET PO ×2 (08:37)
[2021-01-14] MEDS: DOCUSATE 250 MG CAPSULE PO (08:37)
[2021-01-14] MEDS: ESCITALOPRAM 10 MG TABLET PO (08:37)
[2021-01-14] MEDS: MONTELUKAST 10 MG TABLET PO (08:38)
[2021-01-14] MEDS: LORATADINE 10 MG TABLET PO (08:38)
[2021-01-14] MEDS: FLUTICASONE 120 SPRAY/16 GM SPRAY.SUSP NASAL (08:39)
--- NOTE | 2021-01-14 10:45 | CM.DANOTE ---
Patient discharged home. Taken to vehicle by wheelchair, accompanied by mother. All discharge paperwork and instructions given to patient, mother at bedside. All belongings returned to patient. Pt and mother verbalized understanding and denied any further questions. Scripts sent electronically to patients pharmacy.
--- NOTE | 2021-01-14 11:57 | CM.IDA ---
Initial DCP Assessment Note Pt is a 45 yo female, resident of [place], now POD#1 from laparoscopic supracervical hysterectomy with bilateral salpingo oophorectomy by Dr Barry PCP: Mynor Montanez Payer: [employer] Reviewed chart, pt discussed in multidisciplinary rounds this morning. Patient is discharged home today, no needs anticipated from this [employer] Met w/patient this morning to review DCP, patient was planning on returning home w/assist from her mom, denied needs from this [employer] No needs expected from DC planning team although will remain available in case this changes today. BHARATH Frank
== END 2021-01-14 10:35 | disposition home or self-care (01) ==
LOC: OR 06:30 → AC 06:32
PROVIDERS: PCP Registered Nurse; Referring Provider Obstetrics & Gynecology; Visit Provider Obstetrics & Gynecology
PROC: 0UT94ZL Resection of Uterus, Supracervical, Percutaneous Endoscopic Approach (ICD-10-PCS; CPT 58542; principal; 2021-01-13 07:45)
DX: N92.0 Excessive and frequent menstruation with regular cycle (principal); F41.9 Anxiety disorder, unspecified; F32.9 Major depressive disorder, single episode, unspecified; F43.10 Post-traumatic stress disorder, unspecified; E66.9 Obesity, unspecified; K21.9 Gastro-esophageal reflux disease without esophagitis; K58.9 Irritable bowel syndrome, unspecified; Z68.39 Body mass index [BMI] 39.0-39.9, adult; N83.8 Other noninflammatory disorders of ovary, fallopian tube and broad ligament
CPT/HCPCS: 58542; 36415; 85025; J0330; J0690; J1100; J1170; J1885; J2060; J2250; J2405; J2704; J2795; J3010

== ENCOUNTER → 2021-05-28 08:28 | Outpatient (CLI) | payer OTHER, SELFPAY ==
[2021-01-13 12:57] VITALS: BMI 39.4
[2021-05-28 09:22] LABS: Hemoglobin 12.8 g/dL (12.0-16.0); Mean Corpuscular HGB Conc 33.8 % (30-36); Mean Corpuscular Hemoglobin 27.2 PG (26-34); Mean Corpuscular Volume 80.5 fL (80-100); Platelet Count 217 X10^3/uL (150-400); Red Blood Cell Count 4.72 X10^6/uL (4.0-5.2); Red Cell Distribution Width 15.2 % (11.6-14.8); White Blood Cell Count 6.1 X10^3/uL (4.5-11.0)
[2021-05-28 10:41] LABS: Ferritin 8 ng/mL (6-137)
== END ==
PROVIDERS: PCP Registered Nurse; Referring Provider Registered Nurse; Visit Provider Registered Nurse
DX: D50.9 Iron deficiency anemia, unspecified (principal)
CPT/HCPCS: 36415; 82728; 85027

== ENCOUNTER → 2023-07-05 08:32 | Outpatient (CLI) | payer OTHER, SELFPAY ==
[2021-01-13 12:57] VITALS: BMI 39.4
[2023-07-05 09:33] LABS: Alanine Aminotransferase 63 IU/L (<35); Albumin Globulin Ratio 1.2 (1.0-2.8); Alkaline Phosphatase 84 U/L (38-126); Aspartate Aminotransferase 45 IU/L (14-36); BUN Creatinine Ratio 14.5 (6-22); Bilirubin Total 0.9 mg/dL (0.2-1.3); Blood Urea Nitrogen 12 mg/dL (7-17); Calcium 9.8 mg/dL (8.4-10.2); Carbon Dioxide 31 mmol/L (22-32); Chloride 96 mmol/L (98-107); Cholesterol 205 mg/dL (140-199); Estimated Glomerular Filt Rate > 60 mL/min (>60); Globulin 3.3 g/dL (1.7-4.1); Glucose 108 mg/dL (70-100); HDL Cholesterol 56 mg/dL (40-60); HEMOLYSIS < 15 (0-50); LDL Cholesterol Calculated 112 mg/dL (<100); Potassium 3.6 mmol/L (3.4-5.1); Sodium 136 mmol/L (137-145); Total Protein 7.3 g/dL (6.3-8.2); Triglycerides 187 mg/dL (35-150)
[2023-07-05 10:05] LABS: Vitamin B12 433 pg/mL (239-931)
== END ==
PROVIDERS: PCP Registered Nurse; Referring Provider Registered Nurse; Visit Provider Registered Nurse
DX: R74.8 Abnormal levels of other serum enzymes (principal); R53.81 Other malaise; M25.50 Pain in unspecified joint
CPT/HCPCS: 36415; 80053; 80061; 82607

== ENCOUNTER → 2023-09-17 09:23 | Outpatient (CLI) | payer OTHER, SELFPAY ==
[2021-01-13 12:57] VITALS: BMI 39.4
[2023-09-17 11:02] LABS: Add Manual Diff / Slide Review NO; Basophils Absolute Auto 100 /uL (0-100); Basophils Percent Auto 0.7 % (0-2); Eosinophils Absolute Auto 100 /uL (0-450); Hematocrit 36.4 % (36-46); Hemoglobin 12.1 g/dL (12.0-16.0); Lymphocytes Absolute Auto 2600 /uL (1100-4500); Lymphocytes Percent Auto 34.9 % (25-40); Mean Corpuscular HGB Conc 33.2 % (30-36); Mean Corpuscular Hemoglobin 26.5 PG (26-34); Mean Corpuscular Volume 79.7 fL (80-100); Monocytes Absolute Auto 400 /uL (0-900); Monocytes Percent Auto 5.6 % (3-14); Neutrophils Absolute Auto 4300 /uL (1500-7000); Neutrophils Percent Auto 57.8 % (50-75); Platelet Count 281 X10^3/uL (150-400); Red Blood Cell Count 4.57 X10^6/uL (4.0-5.2); Red Cell Distribution Width 15.5 % (11.6-14.8); White Blood Cell Count 7.4 X10^3/uL (4.5-11.0)
[2023-09-17 11:15] LABS: Hemoglobin A1C% w Est Avg Glu 6.8 % (4.0-6.0)
[2023-09-17 11:36] LABS: Alanine Aminotransferase 90 IU/L (<35); Albumin 3.9 g/dL (3.5-5.0); Albumin Globulin Ratio 1.2 (1.0-2.8); Alkaline Phosphatase 88 U/L (38-126); Aspartate Aminotransferase 76 IU/L (14-36); BUN Creatinine Ratio 15.9 (6-22); Bilirubin Total 0.9 mg/dL (0.2-1.3); Blood Urea Nitrogen 13 mg/dL (7-17); Calcium 9.5 mg/dL (8.4-10.2); Carbon Dioxide 37 mmol/L (22-32); Chloride 95 mmol/L (98-107); Cholesterol 212 mg/dL (140-199); Estimated Glomerular Filt Rate > 60 mL/min (>60); Globulin 3.3 g/dL (1.7-4.1); Glucose 113 mg/dL (70-100); HDL Cholesterol 45 mg/dL (40-60); HEMOLYSIS < 15 (0-50); LDL Cholesterol Calculated 133 mg/dL (<100); Potassium 3.1 mmol/L (3.4-5.1); Sodium 138 mmol/L (137-145); Total Protein 7.2 g/dL (6.3-8.2); Triglycerides 172 mg/dL (35-150)
== END ==
LOC: LAB 09:25
PROVIDERS: PCP Registered Nurse; Referring Provider Registered Nurse; Visit Provider Registered Nurse
DX: N20.0 Calculus of kidney (principal); R74.01 Elevation of levels of liver transaminase levels; I10 Essential (primary) hypertension; F32.1 Major depressive disorder, single episode, moderate
CPT/HCPCS: 36415; 80053; 80061; 83036; 85025

== ENCOUNTER → 2024-02-06 10:35 | Outpatient (CLI) | payer OTHER, SELFPAY ==
[2021-01-13 12:57] VITALS: BMI 39.4
[2024-02-06 11:27] LABS: Creatinine Urine Random 169.21 mg/dL
[2024-02-06 11:31] LABS: Alanine Aminotransferase 49 IU/L (<35); Albumin Globulin Ratio 1.3 (1.0-2.8); Alkaline Phosphatase 94 U/L (38-126); Aspartate Aminotransferase 36 IU/L (14-36); BUN Creatinine Ratio 15.7 (6-22); Bilirubin Total 0.9 mg/dL (0.2-1.3); Blood Urea Nitrogen 13 mg/dL (7-17); Carbon Dioxide 26 mmol/L (22-32); Chloride 104 mmol/L (98-107); Cholesterol 222 mg/dL (140-199); Estimated Glomerular Filt Rate > 60 mL/min (>60); Globulin 3.1 g/dL (1.7-4.1); Glucose 104 mg/dL (70-100); HDL Cholesterol 55 mg/dL (40-60); HEMOLYSIS < 15 (0-50); LDL Cholesterol Calculated 138 mg/dL (<100); Potassium 3.6 mmol/L (3.4-5.1); Sodium 137 mmol/L (137-145); Total Protein 7.1 g/dL (6.3-8.2); Triglycerides 145 mg/dL (35-150)
[2024-02-06 11:33] LABS: Microalbumin Urine Random 2.3 mg/dL (0-1.6)
[2024-02-06 11:38] LABS: Hemoglobin A1C% w Est Avg Glu 5.8 % (4.0-6.0)
== END ==
PROVIDERS: PCP Registered Nurse; Referring Provider Registered Nurse; Visit Provider Registered Nurse
DX: E11.9 Type 2 diabetes mellitus without complications (principal); N20.0 Calculus of kidney; R74.01 Elevation of levels of liver transaminase levels; I10 Essential (primary) hypertension; E78.01 Familial hypercholesterolemia
CPT/HCPCS: 36415; 80053; 80061; 82043; 82570; 83036

== ENCOUNTER → 2024-03-06 16:50 | Outpatient (CLI) | payer OTHER, SELFPAY ==
[2021-01-13 12:57] VITALS: BMI 39.4
== END ==
PROVIDERS: PCP Registered Nurse; Visit Provider Nurse Practitioner Family
DX: J02.9 Acute pharyngitis, unspecified (principal)
CPT/HCPCS: 87070

== ENCOUNTER → 2024-05-05 08:52 | Outpatient (CLI) | payer OTHER, SELFPAY ==
[2021-01-13 12:57] VITALS: BMI 39.4
[2024-05-05 10:07] LABS: Hemoglobin A1C% w Est Avg Glu 6.4 % (4.0-6.0)
[2024-05-05 10:18] LABS: Alanine Aminotransferase 63 IU/L (<35); Albumin Globulin Ratio 1.3 (1.0-2.8); Alkaline Phosphatase 86 U/L (38-126); Aspartate Aminotransferase 55 IU/L (14-36); BUN Creatinine Ratio 14.6 (6-22); Bilirubin Total 0.9 mg/dL (0.2-1.3); Blood Urea Nitrogen 12 mg/dL (7-17); Calcium 8.9 mg/dL (8.4-10.2); Carbon Dioxide 25 mmol/L (22-32); Chloride 105 mmol/L (98-107); Cholesterol 224 mg/dL (140-199); Estimated Glomerular Filt Rate > 60 mL/min (>60); Glucose 110 mg/dL (70-100); HDL Cholesterol 59 mg/dL (40-60); HEMOLYSIS < 15 (0-50); LDL Cholesterol Calculated 134 mg/dL (<100); Potassium 3.9 mmol/L (3.4-5.1); Sodium 137 mmol/L (137-145); Triglycerides 154 mg/dL (35-150)
== END ==
PROVIDERS: PCP Registered Nurse; Referring Provider Registered Nurse; Visit Provider Registered Nurse
DX: E11.9 Type 2 diabetes mellitus without complications (principal); R74.01 Elevation of levels of liver transaminase levels; E78.01 Familial hypercholesterolemia
CPT/HCPCS: 36415; 80053; 80061; 83036